=== PATIENT | male | born 1985 | race Caucasian/White ===

== ENCOUNTER 2025-02-26 17:42 | Emergency (ER) | payer BC, SELFPAY ==
[2025-02-26 17:50] VITALS: BP 127/72
[2025-02-26 18:03] LABS: % Basophils 0.7 % (0-2); % Eosinophils 1.2 % (0-6); % Immature Granulocytes 0.4 % (0-0.5); % Lymphocytes 31.6 % (20.5-51.1); % Monocytes 5.3 % (1.7-9.3); % Neutrophils 60.8 % (42.2-75.2); Absolute Basophils 0.1 10^3/uL (0-0.2); Absolute Eosinophils 0.1 10^3/uL (0-0.7); Absolute Lymphocytes 2.7 10^3/uL (1.2-3.4); Absolute Monocytes 0.5 10^3/uL (0.1-0.6); Absolute Neutrophils 5.2 10^3/uL (1.4-6.5); Hematocrit 38.4 % (39.0-52.0); Hemoglobin 13.3 g/dL (13.0-18.0); Mean Corp Hgb Conc. 34.6 g/dL (33.0-37.0); Mean Corpuscular Volume 86.5 fL (80.0-94.0); Mean Platelet Volume 8.8 fL (7.4-10.4); Nucleated Red Blood Cells % 0 % (-); Platelet Count 245 10^3/uL (130-400); Red Blood Cell Count 4.44 10^6/uL (4.70-6.10); White Blood Cell Count 8.5 10^3/uL (4.8-10.8)
--- NOTE | 2025-02-26 18:13 | EDRN ---
Pt OOB to BR at this time.
[2025-02-26 18:20] LABS: ALT (SGPT) 38 U/L (0-50); AST (SGOT) 29 U/L (17-59); Albumin 4.4 g/dl (3.5-5.0); Alkaline Phosphatase 34 U/L (38-126); Blood Urea Nitrogen 16 mg/dl (9-20); Carbon Dioxide 23 mmol/L (22-30); Chloride 108 mmol/L (98-107); Glucose 110 mg/dl (70-99); Potassium 3.9 mmol/L (3.5-5.1); Sodium 139 mmol/L (135-145); Total Bilirubin 0.7 mg/dl (0.2-1.3); Total Protein 6.6 g/dl (6.3-8.2); eGFR > 60.00
[2025-02-26 18:29] LABS: Troponin I < 0.012 ng/ml
[2025-02-26 18:52] VITALS: BMI 26.1
[2025-02-26 18:56] VITALS: BP 112/63
[2025-02-26 20:17] VITALS: BP 110/70
[2025-02-26 21:40] VITALS: BP 107/68
--- NOTE | 2025-02-26 22:26 | ED.GENMED ---
History of Present Illness
General
Chief Complaint: Fainting/Passed Out
Source: patient
Exam Limitations: none
Time Seen by Provider: 02/26/25 21:19
Nursing documentation reviewed up to this point in time: agreed with
History of Present Illness
History of Present Illness:
Patient to ED after syncopal event. He states he was driving his son to ED after he fell and hurt his arm. While driving he started to feel like he was going to pass out. He pulled car over to let drive. When he got out of car he fainted.
states LOC was very brief. She was able to get him into car and to ED. No pprior history of same. Admits to only eating breakfast today, not drinking much. Participated in field day at son's school
Past History
Past History
ED Past Medical History: None
ED Past Surgical History: None
Review of Systems
Review of Systems
Allergies reviewed?: Yes
All Other Systems: ROS reviewed and negative except as documented in HPI and ROS
Constitutional: Reports no symptoms
EENT: Reports no symptoms
Respiratory: Reports no symptoms
Cardiac: Reports no symptoms
ABD/GI: Reports no symptoms
: Reports no symptoms
Musculoskeletal: Reports no symptoms
Skin: Reports no symptoms
Neurological: Reports no symptoms
Psychiatric: Reports no symptoms
Phy Exam
General Physical Exam
General Presentation: well appearing and no apparent distress
General age: appears stated age
General Skin: warm and dry
General Mental: alert
Cardiovascular Exam
Cardiovascular Exam: regular rate/rhythm and no edema
Pulmonary Exam
Pulmonary Exam: lungs clear and no respiratory distress
Neurological Exam
Neurological Exam: alert, oriented x3, CN II-XII intact, no motor deficits, no sensory deficits and speech normal
Musculoskeletal Exam
Musculoskeletal Exam: full ROM and neuro vasc intact
Skin Exam
Skin Exam: normal color, warm/dry and no rash
Psychiatric Exam
Psychiatric Exam: normal mood/affect
Course
Orders/Labs/Results
Orders:
Orders
02/26/25 17:44
ECG [Electrocardiogram (*1)] Urgent
Reason for Study: Syncope
02/26/25 17:57
Complete Blood Count/With Diff Urgent
Comprehensive Metabolic Panel Urgent
Troponin I Urgent
Abnormal Lab Results
02/26/25
17:57
RBC 4.44 L 10^6/uL
(4.70-6.10)
Hct 38.4 L %
(39.0-52.0)
Chloride 108 H mmol/L
(98-107)
Glucose 110 H mg/dl
(70-99)
Alkaline Phosphatase 34 L U/L
(38-126)
02/26/25 17:57
02/26/25 17:57
Vital Signs
Initial and Last Documented VS:
Initial Vital Signs
Temp Pulse Resp BP Pulse Ox
98.2 F 65 20 127/72 99
02/26/25 17:50 02/26/25 17:50 02/26/25 17:50 02/26/25 17:50 02/26/25 17:50
Last Documented Vital Signs
Temp Pulse Resp BP Pulse Ox
97.6 F 64 20 107/68 98
02/26/25 20:17 02/26/25 21:40 02/26/25 21:40 02/26/25 21:40 02/26/25 21:40
*Critical Care Note
Total Time (30-74mins, 75-104mins- exclusive of procedures): Not Applicable
Update Note
Update Note:
Patient to ED afater syncopal event. Occurred while attempting to get his son to ED for injury to his arm. No prior history of same. Labs reviewed, no concerning findings. EKG NSR, VSS. Will discharge home and he will follo wup with PCP in AM.
Given instrucitons on s/s to return to ED and he is agreeable to plan.
ED Attending Note
-
Portions of this chart may have been created with voice recognition software.� Occasional wrong word or��sound alike� substitutions may have occurred due to the inherent limitations of voice recognition software.
Discharge Plan
Departure
Patient Disposition: Home (Routine Discharge)
Date of Disposition: 02/26/25
Time of Disposition: 21:36
Patient with high blood pressure during this ER visit?: No
Condition: Good
Covid-19: Not Applicable
Discharge Problem:
Syncope
Instructions: Syncope (Fainting) (DC)
Prescriptions:
No Action
No Current Medications
0
Referrals:
UNKNOWN - PT DOES,NOT KNOW [Family Provider]
Stand Alone Forms: Return to Work
Activity Restrictions/Additional Instructions:
FOllow up with your family doctor tomorrow.
Interventions
Interventions:
*Risk Screen - Suicide Last Done: 02/26/25 18:52
*General Assessment Last Done: 02/26/25 18:52
*Neglect/Abuse Screening Last Done: 02/26/25 18:52
*ED- Fall Risk Assessment Last Done: 02/26/25 18:52
*ED COVID-19 Vaccine History Last Done: 02/26/25 18:52
*Nursing Disposition Last Done: 02/26/25 21:40
ED- Cardiac Assessment Last Done: 02/26/25 20:17
ED- Neurological Assessment Last Done: 02/26/25 20:17
Discharge Date and Time
Discharge Date/Time: 02/26/25 21:40
Print Language: CHADIAN
== END 2025-02-26 21:40 | disposition home or self-care (01) ==
LOC: EMR 17:42
PROVIDERS: Emergency Medicine; EMERGENCY PHYSICIAN Emergency Medicine
DX: R55 Syncope and collapse (principal)
CPT/HCPCS: 99283; 80053; 84484; 85025; 93005